=== PATIENT | female | born 1980 ===

== ENCOUNTER → 2021-11-19 09:56 | Outpatient (BNVA) | payer OTHER, MEDICAID, SELFPAY | PROVIDERS: Visit Provider Anesthesiology | DX: M96.1 Postlaminectomy syndrome, not elsewhere classified (principal); M43.26 Fusion of spine, lumbar region; M45.9 Ankylosing spondylitis of unspecified sites in spine; G89.4 Chronic pain syndrome; Z99.3 Dependence on wheelchair ==